=== PATIENT | male | born 1980 | race Caucasian/White ===

== ENCOUNTER 2024-04-07 02:24 | Observation (INO) | payer OTHER ==
[2024-04-07] MEDS ORDERED: Senokot S 8.6-50 MG TAB PO PRN (04:01)
[2024-04-07] MEDS ORDERED: Acetaminophen 325 MG TAB PO PRN (04:01)
[2024-04-07] MEDS ORDERED: Calcium Carbonate 500 MG ChewTAB PO PRN (04:01)
[2024-04-07] MEDS ORDERED: Lorazepam 2 MG/ML VIAL SLOW IVP PRN (04:08)
[2024-04-07 04:11] VITALS: BMI 32.8
[2024-04-07] MEDS: Lactated Ringer's 1,000 ML IV SCH (04:33)
[2024-04-07] MEDS: Promethazine HCl 12.5 MG in Sodium Chloride 0.9% 50 ML IVPB SCH (04:33)
[2024-04-07] MEDS: methylPREDNISolone Sod Succ/PF 125 MG/2 ML VIAL IVP SCH (04:34)
[2024-04-07 04:39] LABS: #Basophils 0.03 10x3/uL (0.0-0.2); #Eosinophils 0.08 10x3/uL (0.0-0.5); #Monocytes 0.87 10x3/uL (0.0-1.1); #Neutrophils 9.74 10x3/uL (1.5-8.4); %Basophils 0.2 % (0.0-2.0); %Eosinophils 0.7 % (0.0-6.0); %Lymphocytes 12.5 % (18.0-47.0); %Monocytes 7.1 % (0.0-10.0); %Neutrophils 79.2 % (40.0-75.0); Hematocrit 42.6 % (38.8-50.0); Hemoglobin 14.1 g/dL (13.5-17.5); Mean Corpuscular HGB CONC 33.1 g/dL (32.0-36.0); Mean Corpuscular Hemoglobin 30.9 pg (27.0-33.0); Mean Corpuscular Volume 93.4 fL (81.2-95.1); Mean Platelet Volume 10.2 fL (7.4-10.4); Platelet Count 206 10x3/uL (150-450); RBC Distribution Width 13.1 % (11.5-14.5); Red Blood Cell (RBC) Count 4.56 10x6/uL (4.32-5.72); White Blood Cell (WBC) Count 12.3 10x3/uL (3.5-10.5)
[2024-04-07] MEDS: Morphine 2 MG/ML VIAL SLOW IVP PRN (04:40)
[2024-04-07 04:54] LABS: ALT (SGPT) 33 U/L (8-55); AST (SGOT) 37 U/L (5-34); Albumin 4.3 g/dL (3.5-5.0); Alkaline Phosphatase 63 U/L (40-110); Anion Gap 15 mmol/L (10-20); BUN (Urea Nitrogen) 11 mg/dL (8.9-20.6); Bilirubin, Total 1.2 mg/dL (0.2-1.2); Calc. Creatinine Clearance 167 mL/min (70-130); Calcium 9.5 mg/dL (7.8-10.44); Carbon Dioxide 24 mmol/L (22-29); Chloride 106 mmol/L (98-107); Estimated GFR 110; Globulin 2.7 g/dL (2.4-3.5); Glucose 91 mg/dL (70-105); Lipase 20 U/L (8-78); Potassium 4.3 mmol/L (3.5-5.1); Sodium 141 mmol/L (136-145)
[2024-04-07 05:15] LABS: Bilirubin Neg (Negative); Blood, Urine Negative (Negative); Glucose, Urine (Dipstick) Normal (Negative); Ketone, Urine 50 mg/dL (Negative); Leukocyte Negative (Negative); Nitrite Negative (Negative); Protein, Urine (Dipstick) Negative (Neg-Trace); Specific Gravity, Urine 1.015 (1.005-1.030); Urobilinogen Normal mg/dL (Less than 2)
[2024-04-07 05:24] LABS: Clarity Clear (Clear)
[2024-04-07 05:26] LABS: Bacteria/HPF None Seen HPF (None Seen); RBC/HPF None Seen HPF (0-3); Squamous Epithelial 0-3 HPF (0-3); WBC/HPF 0-3 HPF (0-3)
[2024-04-07 05:45] LABS: Amphetamine Not Detected (NotDetected); Barbiturates Screen Not Detected (NotDetected); Benzodiazepine Screen Detected (NotDetected); Cocaine Metabolite Screen Not Detected (NotDetected); Methadone Not Detected (NotDetected); Methamphetamine Not Detected (NotDetected); Opiate Screen Detected (NotDetected); Oxycodone Screen Not Detected (NotDetected); Phencyclidine (PCP) Not Detected (NotDetected); THC/Cannabinoid Screen Not Detected (NotDetected); Tricyclic Screen Detected (NotDetected)
[2024-04-07] MEDS: Pantoprazole 40 MG VIAL IVP SCH ×2 (06:35→20:58)
[2024-04-07] MEDS: Lidocaine 4% Patch TD SCH (09:56)
[2024-04-07] MEDS: Ondansetron PF 4 MG/2 ML Vial IVP PRN (10:00)
[2024-04-07] MEDS ORDERED: SUCCINYLCHOLINE/SOD CL,ISO/PF 200 MG/10 ML SYRINGE FS ONE (17:03)
[2024-04-07] MEDS ORDERED: PROPOFOL 20 ML ONE (17:04)
[2024-04-07] MEDS ORDERED: Fentanyl 250 MCG/5 ML VIAL ONE (17:04)
[2024-04-07] MEDS ORDERED: fentaNYL 50 mcg/mL 1 mL Vial ONE (17:04)
[2024-04-07] MEDS ORDERED: Dexamethasone 4 mg/ml Vial ONE (17:22)
[2024-04-07] MEDS ORDERED: Ondansetron PF 4 MG/2 ML Vial ONE ×2 (17:22→17:52)
[2024-04-07] MEDS: LIDOCAINE Patch Removal TOP SCH (20:58)
[2024-04-08] MEDS: FLU (Fluarix Triv) TS24-25(6MOS UP)/PF 45 MCG/0.5 ML Syringe IM ONE (09:31)
[2024-04-08 12:13] VITALS: BP 125/65; TEMP 98.5
== END 2024-04-08 13:50 | disposition home or self-care (01) ==
LOC: CSHTELE 03:27
PROVIDERS: ADMIT Student in an Organized Health Care Education/Training Program; ATTEND Internal Medicine
PROC: 0D757ZZ Dilation of Esophagus, Via Natural or Artificial Opening (ICD-10-PCS; principal; 2024-04-08)
PROC: 0DJ08ZZ Inspection of Upper Intestinal Tract, Via Natural or Artificial Opening Endoscopic (ICD-10-PCS; 2024-04-08)
DX: K22.2 Esophageal obstruction (principal); K20.0 Eosinophilic esophagitis; I10 Essential (primary) hypertension; K21.9 Gastro-esophageal reflux disease without esophagitis; K44.9 Diaphragmatic hernia without obstruction or gangrene; F43.10 Post-traumatic stress disorder, unspecified; F32.A Depression, unspecified; F41.0 Panic disorder [episodic paroxysmal anxiety]; J21.0 Acute bronchiolitis due to respiratory syncytial virus; G89.29 Other chronic pain; M54.2 Cervicalgia; M25.519 Pain in unspecified shoulder; Z90.49 Acquired absence of other specified parts of digestive tract; Z87.891 Personal history of nicotine dependence; Z79.1 Long term (current) use of non-steroidal anti-inflammatories (NSAID); Z79.899 Other long term (current) drug therapy
CPT/HCPCS: 36415; 80053; 80306; 81001; 82785; 83690; 83735; 84443; 85025; 86140; 94762; 96374; 96375; 96376; G0378; J1100; J2272; J2405; J2470; J2550; J2704; J2919; J3010; J7120